=== PATIENT | male | born 1965 ===

== ENCOUNTER 2017-09-14 11:19 | Observation (INO) ==
[2017-09-14] MEDS ORDERED: ASPIRIN 325 MG TABLET PO STA (11:43)
[2017-09-14] MEDS ORDERED: NITROGLYCERIN SL 0.4 MG TABLET SL PRN ×2 (11:43→14:00)
[2017-09-14] MEDS ORDERED: ASPIRIN 325 MG TABLET ONE (11:50)
[2017-09-14] MEDS ORDERED: NITROGLYCERIN SL 0.4 MG TABLET SL ONE (11:50)
[2017-09-14 11:51] LABS: Basophils % 0.4 % (0.0-0.8); Eosinophils # 0.5 10*3/uL (0.0-0.87); Eosinophils % 5.6 % (0.00-10.9); Hematocrit 45.4 VOL% (42.0-52.0); Hemoglobin 15.3 GM/DL (14.0-18.0); Immature Granulocytes % 0.7 %; Immature Granulocytes Absolute 0.06 #; Lymphocytes # 1.2 10*3/uL (1.4-4.0); Lymphocytes % 13.2 % (21.2-54.2); Mean Corpuscular HGB Conc 33.7 GM/DL (32-36); Mean Corpuscular Hemoglobin 29 PG (27-34); Mean Corpuscular Volume 86.5 FL (87-102); Mean Platelet Volume 9.4 FL (9.6-12.0); Monocytes # 0.7 10*3/uL (0.11-0.8); Monocytes % 8.1 % (1.7-12.7); Neutrophils # 6.5 10*3/uL (1.4-7.4); Platelet Count 263 T/CUMM (130-400); Red Blood Count 5.25 MC/CUMM (3.8-5.5); Red Cell Distribution Width 12.6 % (9.3-17.3)
[2017-09-14 12:16] LABS: Albumin 3.5 G/DL (3.4-5.0); Bilirubin,Total 0.6 MG/DL (0.2-1.0); Calcium 8.9 MG/DL (8.5-10.1); Osmolality,Calculated 286.8 MOS/KG (273-304); Potassium 4.1 MMOL/L (3.5-5.1); Total Protein 6.7 G/DL (6.4-8.3)
[2017-09-14] MEDS ORDERED: ENOXAPARIN 120 MG/0.8 ML SYRINGE SUBCUT STA (13:56)
[2017-09-14] MEDS ORDERED: MAGNESIUM SULF RIDER 2 GM in PREMIX 1 EACH IV PRN (13:57)
[2017-09-14] MEDS ORDERED: ACETAMINOPHEN 325 MG TABLET PO PRN (13:57)
[2017-09-14] MEDS ORDERED: POTASSIUM CHLORIDE 20 MEQ/15 ML UDCUP PER TUBE PRN (13:57)
[2017-09-14] MEDS ORDERED: ONDANSETRON 4 MG/2 ML VIAL IV PRN (13:57)
[2017-09-14] MEDS ORDERED: ZALEPLON 5 MG CAPSULE PO PRN (13:57)
[2017-09-14] MEDS ORDERED: MAGNESIUM SULF RIDER 4 GM in PREMIX 1 EACH IV PRN (13:57)
[2017-09-14] MEDS ORDERED: MORPHINE 2 MG/1 ML SYRINGE IV PRN (13:57)
[2017-09-14 14:11] LABS: Apearance,Urine CLEAR (Clear); Bilirubin,Urine Negative (Negative); Blood, Urine Negative (Negative); Glucose,Urine (UA) Negative (Negative); Ketones,Urine Negative (Negative); Mucus,Urine Occasional /LPF (Occasional); Nitrite,Urine Negative (Negative); Protein,Urine Negative; RBC,Urine <1 /HPF (0-4); Squamous Epithelial Cell,Urine Occasional /HPF (0-10); Urine Color Yellow (Yellow); Urine Specific Gravity 1.015 (1.001-1.035); WBC,Urine <1 /HPF (0-6)
[2017-09-14] MEDS ORDERED: HEPARIN/NACL 0.9% 2 UNITS/ML 2,000 ML IV ONE (14:14)
[2017-09-14] MEDS ORDERED: ENOXAPARIN 120 MG/0.8 ML SYRINGE SUBCUT ONE (14:22)
[2017-09-14] MEDS ORDERED: diphenhydrAMINE CAP 25 MG CAPSULE PO ONE (14:23)
[2017-09-14] MEDS ORDERED: ENOXAPARIN 100 MG/ML SYRINGE SUBCUT SCH (14:30)
[2017-09-14] MEDS ORDERED: LIDOCAINE 1% 20 ML VIAL ONE (14:35)
[2017-09-14] MEDS ORDERED: HYDROmorphone 2 MG/1 ML VIAL ONE (14:45)
[2017-09-14] MEDS ORDERED: MIDAZOLAM 2 MG/2 ML VIAL ONE (14:46)
[2017-09-14] MEDS ORDERED: guaiFENesin/DM ER 600-30 MG TABLET PO PRN (14:48)
[2017-09-14] MEDS ORDERED: DOCUSATE SODIUM 100 MG CAPSULE PO PRN (14:48)
[2017-09-14] MEDS ORDERED: LACTULOSE 20 GM/30 ML UDCUP PO PRN (14:48)
[2017-09-14] MEDS ORDERED: diphenhydrAMINE CAP 25 MG CAPSULE PO PRN (14:48)
[2017-09-14] MEDS: SODIUM CHLORIDE 0.45% 1,000 ML IV SCH (16:57)
[2017-09-14 18:09] LABS: Troponin I Only < 0.015 NG/ML (0.00-0.045)
[2017-09-14] MEDS ORDERED: predniSONE 20 MG TABLET PO SCH (19:30)
[2017-09-14 20:14] LABS: Troponin I Only < 0.015 NG/ML (0.00-0.045)
[2017-09-14] MEDS: COLCHICINE 0.6 MG TABLET PO SCH (20:39)
[2017-09-14] MEDS: RANOLAZINE 500 MG TABLET PO SCH (20:40)
[2017-09-14] MEDS ORDERED: ATORVASTATIN 80 MG TABLET PO SCH (21:00)
[2017-09-15] MEDS: SODIUM CHLORIDE 0.45% 1,000 ML IV SCH ×2 (02:06→05:40)
[2017-09-15 05:12] LABS: Basophils % 0.4 % (0.0-0.8); Eosinophils % 0.3 % (0.00-10.9); Hematocrit 44.8 VOL% (42.0-52.0); Hemoglobin 15.1 GM/DL (14.0-18.0); Immature Granulocytes % 0.5 %; Immature Granulocytes Absolute 0.04 #; Lymphocytes # 0.5 10*3/uL (1.4-4.0); Mean Corpuscular HGB Conc 33.7 GM/DL (32-36); Mean Corpuscular Hemoglobin 29 PG (27-34); Mean Corpuscular Volume 85.2 FL (87-102); Mean Platelet Volume 9.4 FL (9.6-12.0); Monocytes # 0.2 10*3/uL (0.11-0.8); Monocytes % 2.1 % (1.7-12.7); Neutrophils # 6.7 10*3/uL (1.4-7.4); Neutrophils % 89.7 % (38.7-73.9); Platelet Count 244 T/CUMM (130-400); Red Blood Count 5.26 MC/CUMM (3.8-5.5); Red Cell Distribution Width 12.6 % (9.3-17.3); White Blood Count 7.5 T/CUMM (4-12)
[2017-09-15 05:31] LABS: Risk Ratio 3.2; VLDL CHOLESTEROL 18.4 MG/DL
[2017-09-15 05:32] LABS: Blood Urea Nitrogen 13 MG/DL (7-18); Calcium 8.5 MG/DL (8.5-10.1); Glucose 177 MG/DL (74-106); Osmolality,Calculated 278.7 MOS/KG (273-304); Potassium 4.7 MMOL/L (3.5-5.1); Sodium 138 MMOL/L (136-145); Troponin I Only < 0.015 NG/ML (0.00-0.045)
[2017-09-15 07:51] VITALS: BP 167/76
[2017-09-15] MEDS: RANOLAZINE 500 MG TABLET PO SCH (08:25)
[2017-09-15] MEDS: COLCHICINE 0.6 MG TABLET PO SCH (08:25)
[2017-09-15] MEDS ORDERED: ALLOPURINOL 300 MG TABLET PO SCH ×2 (09:00)
[2017-09-15] MEDS ORDERED: PANTOPRAZOLE 40 MG TABLET PO SCH (09:00)
[2017-09-15] MEDS ORDERED: NON-FORMULARY MEDICATION (Omeprazole [Prilosec] 20 MG) PO SCH (09:00)
[2017-09-15] MEDS ORDERED: ASPIRIN EC 81 MG TABLET PO SCH (09:00)
[2017-09-15] MEDS ORDERED: FEXOFENADINE 180 MG TABLET PO SCH (09:00)
[2017-09-15] MEDS ORDERED: METOPROLOL SUCCINATE XL 25 MG TABLET PO SCH (09:00)
[2017-09-15] MEDS ORDERED: CLOPIDOGREL 75 MG TABLET PO SCH (09:00)
== END 2017-09-15 10:48 | disposition home or self-care (01) ==
LOC: N.ED 11:19 → N.EDINP 11:19 → N.TELEN 16:07
PROVIDERS: ADMIT Internal Medicine Cardiovascular Disease; ATTEND Internal Medicine Cardiovascular Disease
PROC: CLCCHCL (ICD-10-PCS; 2017-09-14 15:15)

== ENCOUNTER 2018-09-25 19:45 | Observation (INO) ==
[2018-09-25] MEDS: SODIUM CHLORIDE 0.9% 1,000 ML IV SCH (22:20)
[2018-09-26] MEDS ORDERED: ACETAMINOPHEN 325 MG TABLET PO PRN (00:17)
[2018-09-26] MEDS ORDERED: DOCUSATE SODIUM 100 MG CAPSULE PO PRN (00:17)
[2018-09-26] MEDS ORDERED: ONDANSETRON 4 MG/2 ML VIAL IV PRN (00:17)
[2018-09-26] MEDS: HYDROmorphone 2 MG/1 ML VIAL IV PRN ×2 (03:25→18:45)
[2018-09-26 05:53] LABS: Basophils % 0.2 % (0.0-0.8); Hematocrit 43.1 VOL% (42.0-52.0); Hemoglobin 14.2 GM/DL (14.0-18.0); Immature Granulocytes % 0.7 %; Immature Granulocytes Absolute 0.08 #; Lymphocytes # 0.7 10*3/uL (1.4-4.0); Lymphocytes % 6.3 % (21.2-54.2); Mean Corpuscular HGB Conc 32.9 GM/DL (32-36); Mean Corpuscular Hemoglobin 28 PG (27-34); Mean Platelet Volume 9.6 FL (9.6-12.0); Monocytes # 0.7 10*3/uL (0.11-0.8); Neutrophils # 9.5 10*3/uL (1.4-7.4); Neutrophils % 86.8 % (38.7-73.9); Platelet Count 250 T/CUMM (130-400); Red Blood Count 5.01 MC/CUMM (3.8-5.5); Red Cell Distribution Width 13.2 % (9.3-17.3); White Blood Count 10.9 T/CUMM (4-12)
[2018-09-26 06:13] LABS: Potassium 4.1 MMOL/L (3.5-5.1)
[2018-09-26] MEDS: SODIUM CHLORIDE 0.9% 1,000 ML IV SCH ×3 (10:00→23:48)
[2018-09-26] MEDS: TAMSULOSIN 0.4 MG CAPSULE PO SCH ×2 (11:53→21:02)
[2018-09-27 05:12] LABS: Basophils # 0.1 10*3/uL (0.0-0.2); Basophils % 0.8 % (0.0-0.8); Eosinophils # 0.4 10*3/uL (0.0-0.87); Eosinophils % 3.8 % (0.00-10.9); Hemoglobin 13.5 GM/DL (14.0-18.0); Immature Granulocytes % 0.5 %; Immature Granulocytes Absolute 0.05 #; Lymphocytes # 1.4 10*3/uL (1.4-4.0); Lymphocytes % 15.2 % (21.2-54.2); Mean Corpuscular HGB Conc 32.1 GM/DL (32-36); Mean Corpuscular Hemoglobin 28 PG (27-34); Mean Corpuscular Volume 87.5 FL (87-102); Mean Platelet Volume 10.4 FL (9.6-12.0); Monocytes % 10.4 % (1.7-12.7); Neutrophils # 6.3 10*3/uL (1.4-7.4); Neutrophils % 69.3 % (38.7-73.9); Platelet Count 203 T/CUMM (130-400); Red Cell Distribution Width 13.2 % (9.3-17.3); White Blood Count 9.1 T/CUMM (4-12)
[2018-09-27 05:41] LABS: Calcium 7.7 MG/DL (8.5-10.1); Potassium 3.9 MMOL/L (3.5-5.1)
[2018-09-27] MEDS: TAMSULOSIN 0.4 MG CAPSULE PO SCH (09:05)
[2018-09-27] MEDS: SODIUM CHLORIDE 0.9% 1,000 ML IV SCH (09:08)
[2018-09-27 11:58] VITALS: BP 138/79
== END 2018-09-27 13:30 | disposition home or self-care (01) ==
LOC: N.5E → SUATTDRO 22:08
PROVIDERS: ADMIT Internal Medicine; ATTEND Internal Medicine

== ENCOUNTER 2019-05-01 12:49 | Observation (INO) ==
[2019-05-01] MEDS ORDERED: NITROGLYCERIN SL 0.4 MG TABLET SL PRN (17:39)
[2019-05-01] MEDS ORDERED: ZALEPLON 5 MG CAPSULE PO PRN (17:59)
[2019-05-01] MEDS ORDERED: guaiFENesin/DM ER 600-30 MG TABLET PO PRN (17:59)
[2019-05-01] MEDS ORDERED: ACETAMINOPHEN 325 MG TABLET PO PRN (17:59)
[2019-05-01] MEDS ORDERED: ATORVASTATIN 40 MG TABLET PO SCH (21:00)
[2019-05-01] MEDS: TAMSULOSIN 0.4 MG CAPSULE PO SCH (21:20)
[2019-05-02 05:06] LABS: Basophils % 0.6 % (0.0-0.8); Eosinophils # 0.6 10*3/uL (0.0-0.87); Eosinophils % 8.5 % (0.00-10.9); Hemoglobin 15.2 GM/DL (14.0-18.0); Immature Granulocytes % 0.7 %; Immature Granulocytes Absolute 0.05 #; Lymphocytes # 1.5 10*3/uL (1.4-4.0); Lymphocytes % 21.6 % (21.2-54.2); Mean Corpuscular HGB Conc 33.8 GM/DL (32-36); Mean Corpuscular Volume 85.1 FL (87-102); Mean Platelet Volume 10.2 FL (9.6-12.0); Monocytes % 8.3 % (1.7-12.7); Neutrophils % 60.3 % (38.7-73.9); Platelet Count 279 T/CUMM (130-400); Red Blood Count 5.29 MC/CUMM (3.8-5.5); Red Cell Distribution Width 12.7 % (9.3-17.3); White Blood Count 7.1 T/CUMM (4-12)
[2019-05-02 05:40] LABS: Albumin 3.4 G/DL (3.4-5.0); Bilirubin,Total 1.6 MG/DL (0.2-1.0); Calcium 8.4 MG/DL (8.5-10.1); Osmolality,Calculated 283.3 MOS/KG (273-304); Risk Ratio 5.89; Thyroid Stimulating Hormone 6.86 uIU/ml (0.358-3.74); Total Protein 7.1 G/DL (6.4-8.3); VLDL CHOLESTEROL 51.8 MG/DL
[2019-05-02] MEDS ORDERED: COLCHICINE 0.6 MG CAPSULE PO SCH (09:00)
[2019-05-02] MEDS ORDERED: CLOPIDOGREL 75 MG TABLET PO SCH (09:00)
[2019-05-02] MEDS: TAMSULOSIN 0.4 MG CAPSULE PO SCH (10:20)
[2019-05-02] MEDS ORDERED: DEXTROSE 50% 25 GM/50 ML VIAL IV PRN (10:24)
[2019-05-02] MEDS ORDERED: GLUCAGON 1 MG VIAL IM PRN (10:24)
[2019-05-02 10:33] LABS: Basophils # 0.1 10*3/uL (0.0-0.2); Basophils % 0.7 % (0.0-0.8); Eosinophils # 0.6 10*3/uL (0.0-0.87); Hematocrit 46.3 VOL% (42.0-52.0); Hemoglobin 15.9 GM/DL (14.0-18.0); Immature Granulocytes % 0.7 %; Immature Granulocytes Absolute 0.05 #; Lymphocytes # 1.2 10*3/uL (1.4-4.0); Lymphocytes % 16.9 % (21.2-54.2); Mean Corpuscular HGB Conc 34.3 GM/DL (32-36); Mean Corpuscular Volume 84.3 FL (87-102); Mean Platelet Volume 9.5 FL (9.6-12.0); Monocytes % 7.6 % (1.7-12.7); Neutrophils % 66.1 % (38.7-73.9); Platelet Count 276 T/CUMM (130-400); Red Blood Count 5.49 MC/CUMM (3.8-5.5); Red Cell Distribution Width 12.6 % (9.3-17.3); White Blood Count 7.3 T/CUMM (4-12)
[2019-05-02] MEDS ORDERED: INSULIN REGULAR 100 UNIT/ML SUBCUT SCH (11:30)
[2019-05-02] MEDS ORDERED: metFORMIN 500 MG TABLET PO SCH (12:37)
[2019-05-02 12:44] VITALS: BP 161/79
[2019-05-02] MEDS ORDERED: OMEGA 3 ACID ETHYL ESTERS 1 GM CAPSULE PO SCH (21:00)
== END 2019-05-02 14:55 | disposition home or self-care (01) ==
LOC: N.2W → SUATTDRO 15:20 → N.2W 16:08
PROVIDERS: ADMIT Internal Medicine; ATTEND Internal Medicine

== ENCOUNTER 2020-05-04 06:00 | Inpatient (IN) ==
[~2020-05-04 06:00] MED LIST: ASPIRIN 325 MG TABLET PO ONE; DEXTROSE 5% NACL 0.45% 1,000 ML IV SCH; DIAZEPAM 5 MG TABLET PO ONE; MAGNESIUM SULF RIDER 2 GM in PREMIX 1 EACH IV PRN; POTASSIUM CHLORIDE RIDER 10 MEQ in PREMIX 1 EACH IV PRN; diphenhydrAMINE CAP 25 MG CAPSULE PO ONE
[2020-05-04] MEDS ORDERED: LIDOCAINE 1%/EPI INJ 20 ML VIAL ONE (06:42)
[2020-05-04] MEDS ORDERED: HEPARIN/NACL 0.9% 2 UNITS/ML 1,000 ML IV ONE (06:42)
[2020-05-04] MEDS ORDERED: VERAPAMIL 5 MG/2 ML VIAL ONE (06:53)
[2020-05-04] MEDS ORDERED: NITROGLYCERIN DRIP 50 MG/250 ML BOTTLE IV ONE (06:53)
[2020-05-04] MEDS ORDERED: LIDOCAINE 1% 20 ML VIAL ONE (06:55)
[2020-05-04] MEDS ORDERED: diphenhydrAMINE CAP 25 MG CAPSULE ONE (06:55)
[2020-05-04] MEDS ORDERED: DIAZEPAM 5 MG TABLET ONE (06:55)
[2020-05-04] MEDS ORDERED: ASPIRIN 325 MG TABLET ONE (06:55)
[2020-05-04] MEDS ORDERED: MIDAZOLAM 2 MG/2 ML VIAL ONE ×2 (07:12→07:32)
[2020-05-04] MEDS ORDERED: fentaNYL 100 MCG/2 ML VIAL ONE (07:12)
[2020-05-04 07:41] LABS: PT Patient Result 10.9 SECS (9.8-11.9)
[2020-05-04] MEDS ORDERED: ENOXAPARIN 60 MG/0.6 ML SYRINGE ONE (07:46)
[2020-05-04] MEDS ORDERED: COLCHICINE 0.6 MG CAPSULE PO PRN (08:05)
[2020-05-04] MEDS ORDERED: NITROGLYCERIN SL 0.4 MG TABLET SL PRN (08:05)
[2020-05-04] MEDS ORDERED: fentaNYL 100 MCG/2 ML VIAL IV PRN (08:06)
[2020-05-04] MEDS: METOPROLOL TARTRATE 50 MG TABLET PO SCH ×2 (09:39→21:04)
[2020-05-04] MEDS: PANTOPRAZOLE 40 MG TABLET PO SCH (09:39)
[2020-05-04] MEDS: ATORVASTATIN 40 MG TABLET PO SCH (09:39)
[2020-05-04] MEDS: amLODIPine 5 MG TABLET PO SCH (09:39)
[2020-05-04] MEDS ORDERED: DEXTROSE 50% 25 GM/50 ML VIAL IV PRN (13:47)
[2020-05-04] MEDS ORDERED: GLUCAGON 1 MG VIAL IM PRN (13:47)
[2020-05-04] MEDS ORDERED: PNEUMOCOCCAL VACCINE (13 VALENT) 0.5 ML SYRINGE IM ONE (14:20)
[2020-05-04] MEDS ORDERED: INFLUENZA VIRUS VACCINE 0.5 ML SYRINGE IM ONE (14:20)
[2020-05-04] MEDS: ASPIRIN EC 81 MG TABLET PO SCH (14:24)
[2020-05-04] MEDS: CHLORHEXIDINE 4% SOLN 118 ML BOTTLE TOP SCH (21:30)
[2020-05-05 05:17] LABS: Basophils # 0.1 10*3/uL (0.0-0.2); Basophils % 0.7 % (0.0-0.8); Eosinophils # 0.5 10*3/uL (0.0-0.87); Eosinophils % 7.2 % (0.00-10.9); Hematocrit 43.5 VOL% (42.0-52.0); Hemoglobin 14.8 GM/DL (14.0-18.0); Immature Granulocytes % 0.6 %; Immature Granulocytes Absolute 0.04 #; Lymphocytes # 1.6 10*3/uL (1.4-4.0); Lymphocytes % 23.3 % (21.2-54.2); Mean Corpuscular Volume 84.8 FL (87-102); Mean Platelet Volume 9.6 FL (9.6-12.0); Monocytes % 7.9 % (1.7-12.7); Neutrophils % 60.3 % (38.7-73.9); Platelet Count 250 T/CUMM (130-400); Red Blood Count 5.13 MC/CUMM (3.8-5.5); Red Cell Distribution Width 12.4 % (9.3-17.3); White Blood Count 6.8 T/CUMM (4-12)
[2020-05-05 05:43] LABS: Albumin 2.8 G/DL (3.4-5.0); Bilirubin,Total 0.5 MG/DL (0.2-1.0); Calcium 8.6 MG/DL (8.5-10.1); Osmolality,Calculated 283.4 MOS/KG (273-304); Total Protein 6.7 G/DL (6.4-8.3)
[2020-05-05] MEDS ORDERED: CHLORHEXIDINE 4% SOLN 118 ML BOTTLE TOP SCH (09:00)
[2020-05-05 09:53] LABS: ABG Base Excess -1.1 MMOL/L (-2.5-2.5); ABG HCO3 23.5 MMOL/L (20-26); ABG Oxygen Saturation 98.7 % (95-100); ABG PCO2 40.1 MM HG (35-48); ABG PH 7.382 (7.35-7.45); ABG TCO2 19.8 MMOL/L (23-27)
[2020-05-05] MEDS: amLODIPine 5 MG TABLET PO SCH (10:06)
[2020-05-05] MEDS: PANTOPRAZOLE 40 MG TABLET PO SCH (10:06)
[2020-05-05] MEDS: ATORVASTATIN 40 MG TABLET PO SCH (10:07)
[2020-05-05] MEDS: METOPROLOL TARTRATE 50 MG TABLET PO SCH ×2 (10:07→20:23)
[2020-05-05] MEDS: CHLORHEXIDINE 0.12% ORAL RINSE 60 ML BOTTLE SWISH/SPIT SCH ×2 (10:07→20:23)
[2020-05-05] MEDS: ASPIRIN EC 81 MG TABLET PO SCH (10:07)
[2020-05-05] MEDS ORDERED: DIAZEPAM 5 MG TABLET PO ONE (10:36)
[2020-05-05] MEDS ORDERED: PANTOPRAZOLE 40 MG TABLET PO ONE (10:36)
[2020-05-05] MEDS: CLORAZEPATE 3.75 MG TABLET PO PRN ×2 (11:59→20:23)
[2020-05-05] MEDS ORDERED: POTASSIUM CHLORIDE 20 MEQ TABLET PO ONE (13:53)
[2020-05-05] MEDS ORDERED: SODIUM CHLORIDE 0.9% 1,000 ML IV SCH (14:00)
[2020-05-05] MEDS: allopurinoL 100 MG TABLET PO SCH (14:23)
[2020-05-05] MEDS: CHLORHEXIDINE 4% SOLN 118 ML BOTTLE TOP SCH (14:37)
[2020-05-05] MEDS: ASCORBIC ACID 500 MG TABLET PO SCH (20:23)
[2020-05-06] MEDS ORDERED: PAPAVERINE 60 MG/2 ML VIAL ONE (04:21)
[2020-05-06] MEDS ORDERED: VANCOMYCIN 1,000 MG VIAL ONE (04:21)
[2020-05-06] MEDS ORDERED: VANCOMYCIN 500 MG VIAL ONE (04:22)
[2020-05-06] MEDS: CHLORHEXIDINE 4% SOLN 118 ML BOTTLE TOP SCH (04:50)
[2020-05-06] MEDS ORDERED: CEFUROXIME INJ 1,500 MG in SYRINGE 1 EACH IV ONE (05:00)
[2020-05-06] MEDS ORDERED: LIDOCAINE 2% 5 ML VIAL ONE (05:43)
[2020-05-06] MEDS ORDERED: SUFentanil 250 MCG/5 ML AMP ONE ×2 (05:43→07:47)
[2020-05-06] MEDS ORDERED: CALCIUM CHLORIDE 1,000 MG/10 ML VIAL IV ONE (05:43)
[2020-05-06] MEDS ORDERED: HEPARIN/NACL 0.9% 2 UNITS/ML 500 ML IV ONE (05:43)
[2020-05-06] MEDS ORDERED: ETOMIDATE 40 MG/20 ML VIAL IV ONE (05:44)
[2020-05-06] MEDS ORDERED: ePHEDrine 50 MG/ML VIAL ONE (05:44)
[2020-05-06] MEDS ORDERED: MIDAZOLAM 10 MG/2 ML VIAL ONE ×2 (05:44)
[2020-05-06] MEDS ORDERED: PHENYLEPHRINE 10 MG/1 ML VIAL IV ONE (05:44)
[2020-05-06] MEDS ORDERED: VECURONIUM 10 MG VIAL IV ONE (05:44)
[2020-05-06] MEDS ORDERED: MINERAL OIL/PETROLATUM OPH OINT 3.5 GM TUBE ONE (05:44)
[2020-05-06] MEDS ORDERED: SODIUM CHLORIDE 0.9% 250 ML IV ONE (05:45)
[2020-05-06] MEDS ORDERED: SODIUM CHLORIDE 0.9% 1,000 ML IV ONE (05:45)
[2020-05-06] MEDS ORDERED: LACTATED RINGERS 1,000 ML IV ONE (05:45)
[2020-05-06] MEDS ORDERED: NITROGLYCERIN DRIP 50 MG/250 ML BOTTLE IV ONE (05:45)
[2020-05-06] MEDS ORDERED: AMINOCAPROIC ACID 5,000 MG/20 ML VIAL ONE (05:45)
[2020-05-06] MEDS ORDERED: DIAZEPAM 5 MG TABLET PO ONE (06:00)
[2020-05-06] MEDS ORDERED: diphenhydrAMINE CAP 25 MG CAPSULE PO ONE (06:00)
[2020-05-06] MEDS ORDERED: PANTOPRAZOLE 40 MG TABLET PO ONE (06:00)
[2020-05-06] MEDS ORDERED: SODIUM CHLORIDE 0.9% 1,000 ML IV SCH (06:00)
[2020-05-06 07:37] LABS: ABG Base Excess 0.8 MMOL/L (-2.5-2.5); ABG HCO3 25.2 MMOL/L (20-26); ABG PCO2 40.9 MM HG (35-48); ABG PH 7.405 (7.35-7.45); ABG TCO2 21.6 MMOL/L (23-27); Glucose Heart Surgery 172 MG/DL (74-106); Hematocrit Heart Surgery 46.7 PERCENT (42-52); Hemoglobin Heart Surgery 15.3 G/DL (14.0-18.0); Ionized Calcium Arterial 1.17 MMOL/L (1.21-1.46); PCO2 Patient Temp Arterial 40.9 MMHG; PH Patient Temp Arterial 7.405; Patient Temperature 37 CELCIUS; Potassium Heart/CVR 3.9 MMOL/L (3.5-5.1); Sodium Heart/CVR 141 MMOL/L (135-145)
[2020-05-06 07:43] LABS: Bacteria,Urine Occasional /HPF (Few); Bilirubin,Urine Negative (Negative); Blood, Urine Negative (Negative); Glucose,Urine (UA) Negative (Negative); Ketones,Urine Negative (Negative); Mucus,Urine Occasional /LPF (Occasional); Nitrite,Urine Negative (Negative); Protein,Urine Negative; RBC,Urine <1 /HPF (0-4); Urine Appearance CLEAR (Clear); Urine Color Yellow (Yellow); Urine Specific Gravity 1.015 (1.001-1.035); Urine Urobilinogen < 2.0 EU/DL (0.2-1.0); WBC,Urine 1 /HPF (0-6)
[2020-05-06] MEDS ORDERED: INSULIN REGULAR 100 UNIT/ML ONE (08:01)
[2020-05-06] MEDS: METOPROLOL TARTRATE 50 MG TABLET PO SCH (08:06)
[2020-05-06] MEDS: amLODIPine 5 MG TABLET PO SCH (08:06)
[2020-05-06] MEDS: ATORVASTATIN 40 MG TABLET PO SCH (08:06)
[2020-05-06] MEDS: ASPIRIN EC 81 MG TABLET PO SCH (08:06)
[2020-05-06] MEDS: PANTOPRAZOLE 40 MG TABLET PO SCH (08:06)
[2020-05-06] MEDS: allopurinoL 100 MG TABLET PO SCH (08:06)
[2020-05-06] MEDS: ASCORBIC ACID 500 MG TABLET PO SCH (08:06)
[2020-05-06] MEDS: CHLORHEXIDINE 0.12% ORAL RINSE 60 ML BOTTLE SWISH/SPIT SCH ×2 (08:06→20:16)
[2020-05-06] MEDS ORDERED: PHENYLEPHRINE DRIP 40 MG/250 ML PREMIX IV ONE (08:34)
[2020-05-06] MEDS ORDERED: ALBUMIN 5% 12.5 GM/250 ML VIAL IV ONE ×2 (08:34→10:09)
[2020-05-06 09:09] LABS: Hematocrit Heart Surgery 35.7 PERCENT (42-52); Hemoglobin Heart Surgery 11.6 G/DL (14.0-18.0); PCO2 Patient Temp Venous 36.1 MM HG; PH Patient Temp Venous 7.453; PO2 Patient Temp Venous 36.5 MM HG; Potassium Heart/CVR 3.6 MMOL/L (3.5-5.1); VBG Base Excess 1.6 MEQ/L (0-4); VBG HCO3 25.5 MEQ/L (24-28); VBG Oxygen Saturation 82.7 %; VBG PCO2 41.8 MMHG (41-51); VBG PH 7.409
[2020-05-06 09:39] LABS: Hemoglobin Heart Surgery 11.7 G/DL (14.0-18.0); PCO2 Patient Temp Venous 41.1 MM HG; PH Patient Temp Venous 7.403; PO2 Patient Temp Venous 38.4 MM HG; Potassium Heart/CVR 4.4 MMOL/L (3.5-5.1); VBG Base Excess 0.8 MEQ/L (0-4); VBG HCO3 24.8 MEQ/L (24-28); VBG Oxygen Saturation 77.9 %; VBG PCO2 43.2 MMHG (41-51); VBG PH 7.388; VBG PO2 41.1 MMHG (17-40)
[2020-05-06 10:08] LABS: ABG Base Excess -0.2 MMOL/L (-2.5-2.5); ABG HCO3 24.3 MMOL/L (20-26); ABG PCO2 40.3 MM HG (35-48); ABG PH 7.393 (7.35-7.45); ABG TCO2 21.7 MMOL/L (23-27); Glucose Heart Surgery 215 MG/DL (74-106); Hematocrit Heart Surgery 37.6 PERCENT (42-52); Hemoglobin Heart Surgery 12.2 G/DL (14.0-18.0); Ionized Calcium Arterial 1.23 MMOL/L (1.21-1.46); PCO2 Patient Temp Arterial 40.3 MMHG; PH Patient Temp Arterial 7.393; Patient Temperature 37 CELCIUS; Potassium Heart/CVR 3.6 MMOL/L (3.5-5.1); Sodium Heart/CVR 136 MMOL/L (135-145)
[2020-05-06] MEDS ORDERED: DEXTROSE 5% KCL 20 MEQ 20 MEQ/1,000 ML BAG IV ONE (10:08)
[2020-05-06] MEDS ORDERED: PROTAMINE SULFATE 250 MG/25 ML VIAL IV ONE (10:08)
[2020-05-06] MEDS ORDERED: ALBUMIN 25% 25 GM/100 ML VIAL IV ONE (10:08)
[2020-05-06] MEDS ORDERED: MAGNESIUM SULFATE 5 GM/10 ML VIAL IV ONE (10:08)
[2020-05-06] MEDS ORDERED: SODIUM BICARBONATE 50 MEQ/50 ML VIAL IV ONE (10:08)
[2020-05-06] MEDS ORDERED: MANNITOL 100 GM/500 ML BAG IV ONE (10:08)
[2020-05-06] MEDS ORDERED: HEPARIN 10,000 UNIT/10 ML VIAL ONE (10:08)
[2020-05-06] MEDS ORDERED: methylPREDNISolone SOD SUC 1,000 MG/8 ML VIAL ONE (10:09)
[2020-05-06] MEDS ORDERED: POTASSIUM CHLORIDE 20 MEQ/10 ML VIAL ONE (10:09)
[2020-05-06] MEDS ORDERED: FUROSEMIDE 20 MG/2 ML VIAL ONE (10:09)
[2020-05-06] MEDS: NITROPRUSSIDE 100 MG in DEXTROSE 5% 250 ML IV PRN (10:50)
[2020-05-06] MEDS ORDERED: INSULIN REGULAR 100 UNIT/ML IV ONE (10:55)
[2020-05-06] MEDS ORDERED: MAGNESIUM SULF RIDER 2 GM in PREMIX 1 EACH IV PRN (10:55)
[2020-05-06] MEDS ORDERED: CHLORHEXIDINE 4% SOLN 118 ML BOTTLE TOP PRN (10:55)
[2020-05-06] MEDS ORDERED: VECURONIUM 10 MG VIAL IV PRN ×2 (10:55)
[2020-05-06] MEDS ORDERED: PHENYLEPHRINE DRIP 40 MG/250 ML PREMIX IV PRN (10:55)
[2020-05-06] MEDS ORDERED: MIDAZOLAM 10 MG/2 ML VIAL IV PRN (10:55)
[2020-05-06] MEDS ORDERED: INSULIN REGULAR 100 UNIT/ML IV PRN (10:55)
[2020-05-06] MEDS ORDERED: CALCIUM CHLORIDE 1,000 MG/10 ML SYRINGE IV PRN (10:55)
[2020-05-06] MEDS ORDERED: MAGNESIUM SULF RIDER 4 GM in PREMIX 1 EACH IV PRN (10:55)
[2020-05-06] MEDS ORDERED: ACETAMINOPHEN 650 MG SUPP RECTAL PRN (10:55)
[2020-05-06] MEDS ORDERED: DEXTROSE 50% 25 GM/50 ML VIAL IV PRN ×2 (10:55)
[2020-05-06] MEDS ORDERED: MORPHINE 10 MG/1 ML VIAL IV PRN (10:55)
[2020-05-06] MEDS ORDERED: LACTATED RINGERS 250 ML IV PRN (10:55)
[2020-05-06] MEDS ORDERED: SEVOFLURANE 1 UNIT/15 MINUTE INH ONE (10:57)
[2020-05-06] MEDS ORDERED: SODIUM CHLORIDE 0.45% 1,000 ML IV SCH ×2 (11:00)
[2020-05-06 11:38] LABS: ABG Base Excess 0.8 MMOL/L (-2.5-2.5); ABG HCO3 25.1 MMOL/L (20-26); ABG Oxygen Saturation 98.2 % (95-100); ABG PCO2 36.4 MM HG (35-48); ABG PH 7.438 (7.35-7.45); ABG PO2 93.5 MM HG (80-95); Glucose Heart Surgery 223 MG/DL (74-106); Hematocrit Heart Surgery 44.3 PERCENT (42-52); Hemoglobin Heart Surgery 14.5 G/DL (14.0-18.0); Potassium Heart/CVR 4.5 MMOL/L (3.5-5.1)
[2020-05-06 11:48] LABS: Basophils # 0.1 10*3/uL (0.0-0.2); Basophils % 0.3 % (0.0-0.8); Eosinophils # 0.2 10*3/uL (0.0-0.87); Eosinophils % 1.3 % (0.00-10.9); Hemoglobin 14.4 GM/DL (14.0-18.0); Immature Granulocytes % 1.2 %; Immature Granulocytes Absolute 0.22 #; Lymphocytes # 1.3 10*3/uL (1.4-4.0); Lymphocytes % 7.2 % (21.2-54.2); Mean Corpuscular HGB Conc 35.1 GM/DL (32-36); Mean Corpuscular Volume 82.7 FL (87-102); Mean Platelet Volume 9.3 FL (9.6-12.0); Monocytes % 3.2 % (1.7-12.7); Neutrophils % 86.8 % (38.7-73.9); Platelet Count 229 T/CUMM (130-400); Red Blood Count 4.96 MC/CUMM (3.8-5.5); Red Cell Distribution Width 12.4 % (9.3-17.3); White Blood Count 17.9 T/CUMM (4-12)
[2020-05-06 12:03] LABS: INR 1.2; PT Patient Result 12.3 SECS (9.8-11.9); Partial Thromboplastin Time 33.2 SECS (23.9-33.8)
[2020-05-06 12:05] LABS: CKMB % 5.8 %
[2020-05-06 12:06] LABS: Troponin I 3.31 NG/ML (0.00-0.045)
[2020-05-06 12:11] LABS: Albumin 3.6 G/DL (3.4-5.0); Bilirubin,Total 1.5 MG/DL (0.2-1.0); Calcium 8.6 MG/DL (8.5-10.1); Osmolality,Calculated 282.5 MOS/KG (273-304); Total Protein 6.5 G/DL (6.4-8.3)
[2020-05-06] MEDS: LACTATED RINGERS 1,000 ML IV PRN ×2 (12:15→15:53)
[2020-05-06] MEDS: ALBUMIN 5% 12.5 GM in PREMIX 1 EACH IV PRN ×2 (12:27→15:24)
[2020-05-06 12:53] LABS: ABG Base Excess -1.4 MMOL/L (-2.5-2.5); ABG HCO3 23.2 MMOL/L (20-26); ABG Oxygen Saturation 97.7 % (95-100); ABG PCO2 37.4 MM HG (35-48); ABG PH 7.397 (7.35-7.45); ABG PO2 90.5 MM HG (80-95); ABG TCO2 19.7 MMOL/L (23-27); Glucose Heart Surgery 270 MG/DL (74-106); Hematocrit Heart Surgery 44.6 PERCENT (42-52); Hemoglobin Heart Surgery 14.6 G/DL (14.0-18.0); Potassium Heart/CVR 3.5 MMOL/L (3.5-5.1)
[2020-05-06] MEDS: INSULIN REGULAR DRIP 100 ML IV SCH ×2 (12:58→22:03)
[2020-05-06] MEDS: POTASSIUM CHLORIDE RIDER 20 MEQ in PREMIX 1 EACH IV PRN ×3 (13:18→20:16)
[2020-05-06 13:52] LABS: ABG Base Excess -4.1 MMOL/L (-2.5-2.5); ABG HCO3 21.1 MMOL/L (20-26); ABG Oxygen Saturation 98.5 % (95-100); ABG PCO2 36.8 MM HG (35-48); ABG TCO2 18.1 MMOL/L (23-27); Glucose Heart Surgery 273 MG/DL (74-106); Hematocrit Heart Surgery 42.5 PERCENT (42-52); Hemoglobin Heart Surgery 13.9 G/DL (14.0-18.0); Potassium Heart/CVR 3.6 MMOL/L (3.5-5.1)
[2020-05-06] MEDS: MIDAZOLAM 2 MG/2 ML VIAL IV PRN ×2 (14:25→17:09)
[2020-05-06 16:10] LABS: ABG Base Excess -7.5 MMOL/L (-2.5-2.5); ABG HCO3 17.7 MMOL/L (20-26); ABG Oxygen Saturation 96.6 % (95-100); ABG PCO2 35.3 MM HG (35-48); ABG PH 7.319 (7.35-7.45); ABG TCO2 18.8 MMOL/L (23-27); Glucose Heart Surgery 260 MG/DL (74-106); Hemoglobin Heart Surgery 13.4 G/DL (14.0-18.0); Potassium Heart/CVR 3.6 MMOL/L (3.5-5.1)
[2020-05-06] MEDS ORDERED: SODIUM BICARBONATE 50 MEQ/50 ML VIAL IV STA ×2 (16:18→17:36)
[2020-05-06 17:17] LABS: ABG Base Excess -7.2 MMOL/L (-2.5-2.5); ABG HCO3 18.7 MMOL/L (20-26); ABG PCO2 39.3 MM HG (35-48); ABG PH 7.293 (7.35-7.45); ABG TCO2 16.8 MMOL/L (23-27); Glucose Heart Surgery 265 MG/DL (74-106); Hematocrit Heart Surgery 40.4 PERCENT (42-52); Hemoglobin Heart Surgery 13.1 G/DL (14.0-18.0); Potassium Heart/CVR 3.6 MMOL/L (3.5-5.1)
[2020-05-06] MEDS: ONDANSETRON 4 MG/2 ML VIAL IV PRN (17:54)
[2020-05-06] MEDS: CEFUROXIME INJ 1,500 MG in SYRINGE 1 EACH IV SCH (17:56)
[2020-05-06 18:33] LABS: ABG Base Excess -1.8 MMOL/L (-2.5-2.5); ABG HCO3 22.2 MMOL/L (20-26); ABG PCO2 35.2 MM HG (35-48); ABG PH 7.417 (7.35-7.45); ABG PO2 90.4 MM HG (80-95); ABG TCO2 23.2 MMOL/L (23-27); Glucose Heart Surgery 240 MG/DL (74-106); Hemoglobin Heart Surgery 13.2 G/DL (14.0-18.0)
[2020-05-06 20:06] LABS: ABG Base Excess -1.8 MMOL/L (-2.5-2.5); ABG HCO3 22.7 MMOL/L (20-26); ABG Oxygen Saturation 97.2 % (95-100); ABG PCO2 37.7 MM HG (35-48); ABG PH 7.397 (7.35-7.45); ABG PO2 91.9 MM HG (80-95); ABG TCO2 23.8 MMOL/L (23-27); Glucose Heart Surgery 219 MG/DL (74-106); Hemoglobin Heart Surgery 13.4 G/DL (14.0-18.0); Potassium Heart/CVR 3.8 MMOL/L (3.5-5.1)
[2020-05-06 20:37] LABS: CKMB % 5.4 %
[2020-05-06 20:40] LABS: Troponin I 9.05 NG/ML (0.00-0.045)
[2020-05-06] MEDS: POTASSIUM CHLORIDE RIDER 10 MEQ in PREMIX 1 EACH IV PRN (20:43)
[2020-05-06 21:12] LABS: ABG Base Excess -0.8 MMOL/L (-2.5-2.5); ABG HCO3 23.8 MMOL/L (20-26); ABG Oxygen Saturation 97.6 % (95-100); ABG PCO2 39.3 MM HG (35-48); ABG PO2 98.4 MM HG (80-95); Glucose Heart Surgery 200 MG/DL (74-106); Hemoglobin Heart Surgery 13.3 G/DL (14.0-18.0); Potassium Heart/CVR 4.3 MMOL/L (3.5-5.1)
[2020-05-06] MEDS: MORPHINE 4 MG/1 ML VIAL IV PRN ×2 (21:14→23:43)
[2020-05-06 22:24] LABS: ABG Base Excess 0.7 MMOL/L (-2.5-2.5); ABG Oxygen Saturation 98.5 % (95-100); ABG PCO2 39.5 MM HG (35-48); ABG PH 7.412 (7.35-7.45); Glucose Heart Surgery 193 MG/DL (74-106); Hematocrit Heart Surgery 39.6 PERCENT (42-52); Hemoglobin Heart Surgery 12.9 G/DL (14.0-18.0); Potassium Heart/CVR 4.3 MMOL/L (3.5-5.1)
[2020-05-06 23:18] LABS: ABG HCO3 25.2 MMOL/L (20-26); ABG Oxygen Saturation 97.4 % (95-100); ABG PH 7.406 (7.35-7.45); ABG PO2 87.2 MM HG (80-95); ABG TCO2 22.5 MMOL/L (23-27); Glucose Heart Surgery 175 MG/DL (74-106); Hematocrit Heart Surgery 39.3 PERCENT (42-52); Hemoglobin Heart Surgery 12.8 G/DL (14.0-18.0)
[2020-05-07] MEDS: ONDANSETRON 4 MG/2 ML VIAL IV PRN ×4 (00:03→18:05)
[2020-05-07 00:23] LABS: ABG Base Excess 0.2 MMOL/L (-2.5-2.5); ABG HCO3 24.5 MMOL/L (20-26); ABG Oxygen Saturation 95.2 % (95-100); ABG PCO2 40.7 MM HG (35-48); ABG PH 7.396 (7.35-7.45); ABG PO2 71.6 MM HG (80-95); ABG TCO2 21.9 MMOL/L (23-27); Glucose Heart Surgery 162 MG/DL (74-106); Hematocrit Heart Surgery 39.9 PERCENT (42-52); Potassium Heart/CVR 3.7 MMOL/L (3.5-5.1)
[2020-05-07 03:46] LABS: ABG Base Excess 2.8 MMOL/L (-2.5-2.5); ABG HCO3 26.8 MMOL/L (20-26); ABG Oxygen Saturation 93.8 % (95-100); ABG PCO2 41.3 MM HG (35-48); ABG PH 7.429 (7.35-7.45); ABG PO2 65.5 MM HG (80-95); ABG TCO2 23.9 MMOL/L (23-27); Glucose Heart Surgery 151 MG/DL (74-106); Hematocrit Heart Surgery 39.1 PERCENT (42-52); Hemoglobin Heart Surgery 12.7 G/DL (14.0-18.0); Potassium Heart/CVR 3.8 MMOL/L (3.5-5.1)
[2020-05-07 03:52] LABS: Basophils % 0.2 % (0.0-0.8); Hematocrit 36.3 VOL% (42.0-52.0); Hemoglobin 12.8 GM/DL (14.0-18.0); Immature Granulocytes % 0.5 %; Lymphocytes # 0.4 10*3/uL (1.4-4.0); Lymphocytes % 2.3 % (21.2-54.2); Mean Corpuscular HGB Conc 35.3 GM/DL (32-36); Mean Corpuscular Volume 82.7 FL (87-102); Mean Platelet Volume 9.8 FL (9.6-12.0); Monocytes % 3.6 % (1.7-12.7); Neutrophils % 93.4 % (38.7-73.9); Platelet Count 233 T/CUMM (130-400); Red Blood Count 4.39 MC/CUMM (3.8-5.5); Red Cell Distribution Width 12.7 % (9.3-17.3); White Blood Count 19.1 T/CUMM (4-12)
[2020-05-07 04:06] LABS: CKMB % 4.4 %
[2020-05-07] MEDS: NITROPRUSSIDE 100 MG in DEXTROSE 5% 250 ML IV PRN (04:09)
[2020-05-07 04:11] LABS: Albumin 3.3 G/DL (3.4-5.0); Bilirubin,Direct 0.22 MG/DL (0.0-0.20); Bilirubin,Total 0.8 MG/DL (0.2-1.0); Calcium 8.3 MG/DL (8.5-10.1); Osmolality,Calculated 289.7 MOS/KG (273-304); Total Protein 6.4 G/DL (6.4-8.3)
[2020-05-07 04:39] LABS: Lymphocytes 2 % (20-55); Segmented Neutrophils 96 % (50-85); Total Cells Counted 100
[2020-05-07] MEDS: POTASSIUM CHLORIDE RIDER 20 MEQ in PREMIX 1 EACH IV PRN (04:39)
[2020-05-07 04:40] LABS: Hypochromasia Slight; Microcytosis Slight; Platelet Estimate Adequate
[2020-05-07] MEDS ORDERED: FUROSEMIDE 40 MG/4 ML VIAL IV ONE (04:46)
[2020-05-07] MEDS: POTASSIUM CHLORIDE RIDER 10 MEQ in PREMIX 1 EACH IV PRN (05:11)
[2020-05-07] MEDS: MORPHINE 4 MG/1 ML VIAL IV PRN (05:26)
[2020-05-07] MEDS: INSULIN REGULAR DRIP 100 ML IV SCH (06:02)
[2020-05-07] MEDS: CEFUROXIME INJ 1,500 MG in SYRINGE 1 EACH IV SCH ×2 (06:32→19:08)
[2020-05-07] MEDS ORDERED: DEXTROSE 50% 25 GM/50 ML VIAL IV PRN ×2 (07:49→09:08)
[2020-05-07] MEDS ORDERED: GLUCAGON 1 MG VIAL IM PRN ×2 (07:49→09:08)
[2020-05-07] MEDS: allopurinoL 100 MG TABLET PO SCH (08:49)
[2020-05-07] MEDS: ASPIRIN EC 325 MG TABLET PO SCH (08:49)
[2020-05-07] MEDS: METOPROLOL TARTRATE 25 MG TABLET PO SCH (08:49)
[2020-05-07] MEDS: CHLORHEXIDINE 0.12% ORAL RINSE 60 ML BOTTLE SWISH/SPIT SCH ×2 (08:49→09:20)
[2020-05-07] MEDS: metFORMIN 500 MG TABLET PO SCH ×2 (08:52→17:50)
[2020-05-07] MEDS ORDERED: INSULIN GLARGINE 100 UNIT/ML SUBCUT SCH (09:00)
[2020-05-07] MEDS ORDERED: MAGNESIUM SULF RIDER 2 GM in PREMIX 1 EACH IV PRN (09:08)
[2020-05-07] MEDS ORDERED: MAGNESIUM HYDROXIDE SUSP 30 ML UDCUP PO PRN (09:08)
[2020-05-07] MEDS ORDERED: MAGNESIUM SULF RIDER 4 GM in PREMIX 1 EACH IV PRN (09:08)
[2020-05-07] MEDS ORDERED: ACETAMINOPHEN 325 MG TABLET PO PRN (09:08)
[2020-05-07] MEDS ORDERED: ZALEPLON 5 MG CAPSULE PO PRN (09:08)
[2020-05-07] MEDS ORDERED: SODIUM CHLOR 0.45% KCL 20 MEQ 20 MEQ/1,000 ML BAG IV SCH (09:08)
[2020-05-07] MEDS ORDERED: ALUMINUM/MAGNES/SIMETH MAX STR 30 ML UDCUP PO PRN (09:08)
[2020-05-07] MEDS: DOCUSATE SODIUM 100 MG CAPSULE PO SCH (09:31)
[2020-05-07] MEDS: PANTOPRAZOLE 40 MG TABLET PO SCH (09:31)
[2020-05-07] MEDS: FERROUS SULFATE 325 MG TABLET PO SCH (09:31)
[2020-05-07] MEDS: KETOROLAC 30 MG/1 ML VIAL IV PRN ×2 (10:15→18:05)
[2020-05-07] MEDS: oxyCODONE/ACETAMINOPHEN 5-325 MG TABLET PO PRN ×2 (10:30→14:06)
[2020-05-07 11:20] LABS: CKMB % 3.7 %
[2020-05-07 11:27] LABS: Troponin I 15.6 NG/ML (0.00-0.045)
[2020-05-07] MEDS ORDERED: INSULIN REGULAR 100 UNIT/ML SUBCUT SCH (11:30)
[2020-05-07] MEDS: INSULIN REGULAR 100 UNIT/ML SUBCUT SCH ×2 (12:07→17:50)
[2020-05-07 23:46] LABS: CKMB % 1.5 %; Troponin I 12.8 NG/ML (0.00-0.045)
[2020-05-08] MEDS: METOPROLOL TARTRATE 25 MG TABLET PO SCH ×2 (00:54→08:09)
[2020-05-08] MEDS: ATORVASTATIN 40 MG TABLET PO SCH (00:55)
[2020-05-08] MEDS: CHLORHEXIDINE 0.12% ORAL RINSE 60 ML BOTTLE SWISH/SPIT SCH ×2 (00:56→08:11)
[2020-05-08] MEDS: INSULIN REGULAR 100 UNIT/ML SUBCUT SCH ×5 (01:54→22:21)
[2020-05-08] MEDS ORDERED: FUROSEMIDE 40 MG/4 ML VIAL IV ONE (06:00)
[2020-05-08] MEDS: ONDANSETRON 4 MG/2 ML VIAL IV PRN (06:13)
[2020-05-08] MEDS: KETOROLAC 30 MG/1 ML VIAL IV PRN (06:16)
[2020-05-08 06:39] LABS: Basophils % 0.1 % (0.0-0.8); Hematocrit 38.9 VOL% (42.0-52.0); Hemoglobin 12.9 GM/DL (14.0-18.0); Immature Granulocytes % 0.8 %; Immature Granulocytes Absolute 0.17 #; Lymphocytes # 1.2 10*3/uL (1.4-4.0); Mean Corpuscular HGB Conc 33.2 GM/DL (32-36); Mean Corpuscular Volume 86.8 FL (87-102); Mean Platelet Volume 10.5 FL (9.6-12.0); Monocytes % 6.4 % (1.7-12.7); Neutrophils % 86.7 % (38.7-73.9); Platelet Count 210 T/CUMM (130-400); Red Blood Count 4.48 MC/CUMM (3.8-5.5); Red Cell Distribution Width 13.1 % (9.3-17.3); White Blood Count 20.6 T/CUMM (4-12)
[2020-05-08 06:42] LABS: Bilirubin,Direct 0.14 MG/DL (0.0-0.20); Bilirubin,Total 0.6 MG/DL (0.2-1.0); Calcium 8.3 MG/DL (8.5-10.1); Osmolality,Calculated 287.4 MOS/KG (273-304); Total Protein 6.6 G/DL (6.4-8.3)
[2020-05-08 07:21] LABS: Albumin 3.1 G/DL (3.4-5.0); Bilirubin,Direct 0.16 MG/DL (0.0-0.20); Bilirubin,Indirect 0.3 MG/DL (0.0-1.0); Bilirubin,Total 0.5 MG/DL (0.2-1.0); CKMB % 1.1 %; Total Protein 6.5 G/DL (6.4-8.3); Troponin I 10.8 NG/ML (0.00-0.045)
[2020-05-08 07:23] LABS: Calcium 8.3 MG/DL (8.5-10.1); Osmolality,Calculated 283.7 MOS/KG (273-304)
[2020-05-08] MEDS: PANTOPRAZOLE 40 MG TABLET PO SCH (08:11)
[2020-05-08] MEDS: metFORMIN 500 MG TABLET PO SCH ×2 (08:11→17:10)
[2020-05-08] MEDS: POLYETHYLENE GLYCOL POWDER 17 GM PACK PO SCH (08:11)
[2020-05-08] MEDS: DOCUSATE SODIUM 100 MG CAPSULE PO SCH (08:11)
[2020-05-08] MEDS: allopurinoL 100 MG TABLET PO SCH (08:11)
[2020-05-08] MEDS: FERROUS SULFATE 325 MG TABLET PO SCH (08:11)
[2020-05-08] MEDS: ASPIRIN EC 325 MG TABLET PO SCH (08:11)
[2020-05-08 09:52] LABS: Lymphocytes 4 % (20-55); Platelet Estimate Normal; Segmented Neutrophils 91 % (50-85); Total Cells Counted 100
[2020-05-08] MEDS: INSULIN GLARGINE 100 UNIT/ML SUBCUT SCH (10:44)
[2020-05-08] MEDS: oxyCODONE/ACETAMINOPHEN 5-325 MG TABLET PO PRN ×4 (14:04→20:38)
[2020-05-09] MEDS: CHLORHEXIDINE 0.12% ORAL RINSE 60 ML BOTTLE SWISH/SPIT SCH ×3 (01:05→23:17)
[2020-05-09] MEDS: METOPROLOL TARTRATE 25 MG TABLET PO SCH ×3 (01:05→23:11)
[2020-05-09] MEDS: ATORVASTATIN 40 MG TABLET PO SCH ×2 (01:05→23:11)
[2020-05-09 07:17] LABS: Basophils % 0.3 % (0.0-0.8); Eosinophils # 0.2 10*3/uL (0.0-0.87); Eosinophils % 1.5 % (0.00-10.9); Hematocrit 34.9 VOL% (42.0-52.0); Hemoglobin 11.9 GM/DL (14.0-18.0); Immature Granulocytes % 0.8 %; Lymphocytes # 1.4 10*3/uL (1.4-4.0); Lymphocytes % 11.3 % (21.2-54.2); Mean Corpuscular HGB Conc 34.1 GM/DL (32-36); Mean Platelet Volume 9.9 FL (9.6-12.0); Monocytes % 7.2 % (1.7-12.7); Neutrophils % 78.9 % (38.7-73.9); Platelet Count 233 T/CUMM (130-400); Red Blood Count 4.06 MC/CUMM (3.8-5.5); Red Cell Distribution Width 12.8 % (9.3-17.3)
[2020-05-09 07:34] LABS: Osmolality,Calculated 284.5 MOS/KG (273-304)
[2020-05-09 07:38] LABS: Albumin 2.9 G/DL (3.4-5.0); Bilirubin,Direct 0.22 MG/DL (0.0-0.20); Bilirubin,Total 0.8 MG/DL (0.2-1.0); Calcium 8.2 MG/DL (8.5-10.1); Osmolality,Calculated 285.4 MOS/KG (273-304); Total Protein 6.3 G/DL (6.4-8.3)
[2020-05-09 07:59] LABS: Alanine Aminotransferase 16 U/L (16-61); Albumin 2.9 G/DL (3.4-5.0); Alkaline Phosphatase 80 U/L (45-117); Aspartate Amino Transferase 30 U/L (0-37); Bilirubin,Indirect 0.6 MG/DL (0.0-1.0); Total Protein 5.8 G/DL (6.4-8.3)
[2020-05-09] MEDS: INSULIN REGULAR 100 UNIT/ML SUBCUT SCH ×3 (09:42→16:12)
[2020-05-09] MEDS: oxyCODONE/ACETAMINOPHEN 5-325 MG TABLET PO PRN ×2 (09:43→17:09)
[2020-05-09] MEDS: INSULIN GLARGINE 100 UNIT/ML SUBCUT SCH (09:43)
[2020-05-09] MEDS: ASPIRIN EC 325 MG TABLET PO SCH (09:43)
[2020-05-09] MEDS: allopurinoL 100 MG TABLET PO SCH (09:43)
[2020-05-09] MEDS: metFORMIN 500 MG TABLET PO SCH ×2 (09:43→17:07)
[2020-05-09] MEDS: PANTOPRAZOLE 40 MG TABLET PO SCH (09:44)
[2020-05-09] MEDS: FERROUS SULFATE 325 MG TABLET PO SCH (09:44)
[2020-05-09] MEDS: DOCUSATE SODIUM 100 MG CAPSULE PO SCH (09:44)
[2020-05-09] MEDS: POLYETHYLENE GLYCOL POWDER 17 GM PACK PO SCH (09:45)
[2020-05-09] MEDS ORDERED: LACTULOSE 20 GM/30 ML UDCUP PO ONE (21:50)
[2020-05-10] MEDS: oxyCODONE/ACETAMINOPHEN 5-325 MG TABLET PO PRN (06:33)
[2020-05-10 06:55] LABS: Basophils % 0.3 % (0.0-0.8); Eosinophils # 0.6 10*3/uL (0.0-0.87); Eosinophils % 5.1 % (0.00-10.9); Hematocrit 35.7 VOL% (42.0-52.0); Hemoglobin 12.2 GM/DL (14.0-18.0); Immature Granulocytes % 0.9 %; Lymphocytes # 1.4 10*3/uL (1.4-4.0); Lymphocytes % 12.5 % (21.2-54.2); Mean Corpuscular HGB Conc 34.2 GM/DL (32-36); Mean Corpuscular Volume 85.6 FL (87-102); Mean Platelet Volume 9.8 FL (9.6-12.0); Monocytes % 6.5 % (1.7-12.7); Neutrophils % 74.7 % (38.7-73.9); Platelet Count 255 T/CUMM (130-400); Red Blood Count 4.17 MC/CUMM (3.8-5.5); Red Cell Distribution Width 12.6 % (9.3-17.3); White Blood Count 11.1 T/CUMM (4-12)
[2020-05-10 07:03] LABS: Calcium 8.4 MG/DL (8.5-10.1); Osmolality,Calculated 284.1 MOS/KG (273-304)
[2020-05-10] MEDS: POTASSIUM CHLORIDE 20 MEQ TABLET PO PRN ×2 (07:35→09:43)
[2020-05-10] MEDS ORDERED: LACTULOSE 20 GM/30 ML UDCUP PO ONE ×2 (08:45→08:46)
[2020-05-10] MEDS: INSULIN REGULAR 100 UNIT/ML SUBCUT SCH ×5 (08:46→21:48)
[2020-05-10] MEDS: POLYETHYLENE GLYCOL POWDER 17 GM PACK PO SCH (09:42)
[2020-05-10] MEDS: METOPROLOL TARTRATE 25 MG TABLET PO SCH ×2 (09:42→21:48)
[2020-05-10] MEDS: DOCUSATE SODIUM 100 MG CAPSULE PO SCH (09:42)
[2020-05-10] MEDS: INSULIN GLARGINE 100 UNIT/ML SUBCUT SCH (09:42)
[2020-05-10] MEDS: ASPIRIN EC 325 MG TABLET PO SCH (09:42)
[2020-05-10] MEDS: metFORMIN 500 MG TABLET PO SCH ×2 (09:43→16:17)
[2020-05-10] MEDS: FERROUS SULFATE 325 MG TABLET PO SCH (09:43)
[2020-05-10] MEDS: LOSARTAN 25 MG TABLET PO SCH (09:43)
[2020-05-10] MEDS: PANTOPRAZOLE 40 MG TABLET PO SCH (09:43)
[2020-05-10] MEDS: CHLORHEXIDINE 0.12% ORAL RINSE 60 ML BOTTLE SWISH/SPIT SCH ×2 (09:45→21:48)
[2020-05-10] MEDS: allopurinoL 100 MG TABLET PO SCH (09:48)
[2020-05-10] MEDS: LACTULOSE 20 GM/30 ML UDCUP PO SCH (21:47)
[2020-05-10] MEDS: ATORVASTATIN 40 MG TABLET PO SCH (21:48)
[2020-05-11 05:45] LABS: Basophils # 0.1 10*3/uL (0.0-0.2); Basophils % 0.4 % (0.0-0.8); Eosinophils # 0.7 10*3/uL (0.0-0.87); Eosinophils % 5.7 % (0.00-10.9); Hematocrit 35.7 VOL% (42.0-52.0); Hemoglobin 12.2 GM/DL (14.0-18.0); Immature Granulocytes % 1.2 %; Immature Granulocytes Absolute 0.15 #; Lymphocytes # 1.7 10*3/uL (1.4-4.0); Lymphocytes % 13.3 % (21.2-54.2); Mean Corpuscular HGB Conc 34.2 GM/DL (32-36); Mean Corpuscular Volume 84.8 FL (87-102); Mean Platelet Volume 9.6 FL (9.6-12.0); Monocytes % 6.4 % (1.7-12.7); NRBC # 0.02 10*3/uL; Platelet Count 308 T/CUMM (130-400); Red Blood Count 4.21 MC/CUMM (3.8-5.5); Red Cell Distribution Width 12.7 % (9.3-17.3); White Blood Count 12.8 T/CUMM (4-12)
[2020-05-11 06:07] LABS: Alanine Aminotransferase 15 U/L (16-61); Albumin 2.7 G/DL (3.4-5.0); Alkaline Phosphatase 94 U/L (45-117); Aspartate Amino Transferase 16 U/L (0-37); Bilirubin,Indirect 1.2 MG/DL (0.0-1.0); Blood Urea Nitrogen 16 MG/DL (7-18); Calcium 8.6 MG/DL (8.5-10.1); Estimated Glom Filtration Rate 119 ML/MIN; Glucose 84 MG/DL (74-106); Osmolality,Calculated 280.3 MOS/KG (273-304); Total Protein 6.5 G/DL (6.4-8.3)
[2020-05-11] MEDS: POLYETHYLENE GLYCOL POWDER 17 GM PACK PO SCH (09:25)
[2020-05-11] MEDS: LACTULOSE 20 GM/30 ML UDCUP PO SCH (09:25)
[2020-05-11] MEDS: INSULIN GLARGINE 100 UNIT/ML SUBCUT SCH (09:25)
[2020-05-11] MEDS: INSULIN REGULAR 100 UNIT/ML SUBCUT SCH ×2 (09:25→13:09)
[2020-05-11] MEDS: allopurinoL 100 MG TABLET PO SCH (09:26)
[2020-05-11] MEDS: DOCUSATE SODIUM 100 MG CAPSULE PO SCH (09:26)
[2020-05-11] MEDS: metFORMIN 500 MG TABLET PO SCH (09:26)
[2020-05-11] MEDS: PANTOPRAZOLE 40 MG TABLET PO SCH (09:26)
[2020-05-11] MEDS: METOPROLOL TARTRATE 25 MG TABLET PO SCH (09:26)
[2020-05-11] MEDS: FERROUS SULFATE 325 MG TABLET PO SCH (09:26)
[2020-05-11] MEDS: CHLORHEXIDINE 0.12% ORAL RINSE 60 ML BOTTLE SWISH/SPIT SCH (09:27)
[2020-05-11] MEDS: ASPIRIN EC 325 MG TABLET PO SCH (09:27)
[2020-05-11] MEDS: LOSARTAN 25 MG TABLET PO SCH (09:27)
[2020-05-11 12:13] VITALS: BP 131/70
== END 2020-05-11 13:12 | disposition home health service (06) | DRG 234 ==
LOC: N.CL 06:00 → N.TELEN 13:52 → N.CVR 05-06 09:19 → N.ICU 05-07 07:48 → N.TELES 05-07 11:52
PROVIDERS: ADMIT Internal Medicine Interventional Cardiology
PROC: CLCCHCL (ICD-10-PCS; 2020-05-04 07:45)

== ENCOUNTER 2022-03-14 12:55 | Observation (INO) ==
[2022-03-14] MEDS ORDERED: ASPIRIN 325 MG TABLET ONE (16:44)
[2022-03-14] MEDS ORDERED: ASPIRIN 325 MG TABLET PO STA (16:45)
[2022-03-14 16:52] LABS: Basophils # 0.1 10*3/uL (0.0-0.2); Basophils % 0.7 % (0.0-0.8); Eosinophils # 0.4 10*3/uL (0.0-0.87); Hemoglobin 15.3 GM/DL (14.0-18.0); Immature Granulocytes % 0.6 %; Immature Granulocytes Absolute 0.04 #; Lymphocytes # 1.4 10*3/uL (1.4-4.0); Lymphocytes % 20.7 % (21.2-54.2); Mean Corpuscular HGB Conc 33.3 GM/DL (32-36); Mean Corpuscular Volume 84.2 FL (87-102); Mean Platelet Volume 9.8 FL (9.6-12.0); Monocytes # 0.5 10*3/uL (0.11-0.8); Monocytes % 7.1 % (1.7-12.7); Neutrophils % 64.9 % (38.7-73.9); Platelet Count 263 T/CUMM (130-400); Red Blood Count 5.46 MC/CUMM (3.8-5.5); Red Cell Distribution Width 13.2 % (9.3-17.3); White Blood Count 6.9 T/CUMM (4-12)
[2022-03-14 17:03] LABS: Albumin 3.1 G/DL (3.4-5.0); Bilirubin,Total 0.6 MG/DL (0.20-1.00); Calcium 9.4 MG/DL (8.5-10.1); Osmolality,Calculated 286.4 MOS/KG (273-304); Total Protein 7.3 G/DL (6.4-8.2)
[2022-03-14] MEDS ORDERED: MAGNESIUM SULF RIDER 2 GM/50 ML PREMIX IV PRN (17:29)
[2022-03-14] MEDS ORDERED: ONDANSETRON 4 MG/2 ML VIAL IV PRN (17:29)
[2022-03-14] MEDS ORDERED: MAGNESIUM SULF RIDER 4 GM/100 ML PREMIX IV PRN (17:29)
[2022-03-14] MEDS ORDERED: ACETAMINOPHEN 500 MG TABLET PO PRN (19:23)
[2022-03-14] MEDS ORDERED: NITROGLYCERIN SL 0.4 MG TABLET SL PRN (19:23)
[2022-03-14] MEDS ORDERED: carvediloL 3.125 MG TABLET PO SCH (21:00)
[2022-03-15] MEDS ORDERED: diphenhydrAMINE CAP 50 MG CAPSULE PO ONE ×2 (07:19→14:30)
[2022-03-15] MEDS ORDERED: DIAZEPAM 5 MG TABLET PO ONE ×2 (07:19→14:30)
[2022-03-15] MEDS ORDERED: hydrALAZINE 20 MG/1 ML VIAL IV PRN (07:34)
[2022-03-15] MEDS ORDERED: metFORMIN 500 MG TABLET PO SCH (08:00)
[2022-03-15] MEDS ORDERED: ENOXAPARIN 120 MG/0.8 ML SYRINGE SUBCUT ONE (08:00)
[2022-03-15 08:17] LABS: Risk Ratio 4.83; VLDL Cholesterol 26.2 MG/DL
[2022-03-15] MEDS ORDERED: LOSARTAN 25 MG TABLET PO SCH (09:00)
[2022-03-15] MEDS: allopurinoL 100 MG TABLET PO SCH (09:42)
[2022-03-15] MEDS: LOSARTAN 50 MG TABLET PO SCH (09:42)
[2022-03-15] MEDS: ASPIRIN EC 81 MG TABLET PO SCH (09:42)
[2022-03-15] MEDS: MELOXICAM 7.5 MG TABLET PO SCH (09:44)
[2022-03-15] MEDS ORDERED: SODIUM CHLORIDE 0.45% 1,000 ML IV SCH (10:00)
[2022-03-15] MEDS: INSULIN REGULAR 100 UNIT/ML SUBCUT SCH ×3 (12:59→22:13)
[2022-03-15] MEDS ORDERED: HEPARIN/NACL 0.9% 2 UNITS/ML 2,000 UNIT/1,000 ML BAG IV ONE (14:13)
[2022-03-15] MEDS ORDERED: LIDOCAINE 1%/EPI INJ 20 ML VIAL ONE (14:15)
[2022-03-15] MEDS ORDERED: MIDAZOLAM 2 MG/2 ML VIAL ONE ×2 (14:39→15:42)
[2022-03-15] MEDS ORDERED: fentaNYL 100 MCG/2 ML VIAL ONE (14:39)
[2022-03-15] MEDS ORDERED: ENOXAPARIN 60 MG/0.6 ML SYRINGE ONE (15:03)
[2022-03-15] MEDS ORDERED: TIROFIBAN 5,000 MCG/100 ML PREMIX IV ONE (15:12)
[2022-03-15] MEDS ORDERED: TICAGRELOR 90 MG TABLET ONE (15:42)
[2022-03-15] MEDS ORDERED: HYDROmorphone 1 MG/1 ML SYRINGE ONE (16:01)
[2022-03-15] MEDS ORDERED: DEXTROSE 10% 250 ML BAG IV PRN (19:57)
[2022-03-15] MEDS ORDERED: GLUCAGON 1 MG VIAL IM PRN (19:57)
[2022-03-15] MEDS ORDERED: SIMVASTATIN 20 MG TABLET PO SCH (21:00)
[2022-03-15] MEDS ORDERED: ROSUVASTATIN 20 MG TABLET PO SCH (21:00)
[2022-03-15] MEDS: TICAGRELOR 90 MG TABLET PO SCH (22:13)
[2022-03-16 04:51] LABS: Basophils # 0.1 10*3/uL (0.0-0.2); Basophils % 0.6 % (0.0-0.8); Eosinophils # 0.5 10*3/uL (0.0-0.87); Eosinophils % 5.9 % (0.00-10.9); Hematocrit 43.6 VOL% (42.0-52.0); Hemoglobin 14.3 GM/DL (14.0-18.0); Immature Granulocytes % 0.7 %; Immature Granulocytes Absolute 0.06 #; Lymphocytes # 1.3 10*3/uL (1.4-4.0); Lymphocytes % 15.3 % (21.2-54.2); Mean Corpuscular HGB Conc 32.8 GM/DL (32-36); Mean Corpuscular Volume 84.8 FL (87-102); Mean Platelet Volume 9.7 FL (9.6-12.0); Monocytes # 0.8 10*3/uL (0.11-0.8); Neutrophils % 68.5 % (38.7-73.9); Platelet Count 235 T/CUMM (130-400); Red Blood Count 5.14 MC/CUMM (3.8-5.5); White Blood Count 8.3 T/CUMM (4-12)
[2022-03-16 05:07] LABS: Calcium 8.3 MG/DL (8.5-10.1); Osmolality,Calculated 283.3 MOS/KG (273-304); Potassium 3.6 MMOL/L (3.5-5.1)
[2022-03-16] MEDS ORDERED: PANTOPRAZOLE 40 MG TABLET PO SCH (09:00)
[2022-03-16] MEDS: INSULIN REGULAR 100 UNIT/ML SUBCUT SCH (09:04)
[2022-03-16] MEDS: MELOXICAM 7.5 MG TABLET PO SCH (09:06)
[2022-03-16] MEDS: allopurinoL 100 MG TABLET PO SCH (09:06)
[2022-03-16] MEDS: TICAGRELOR 90 MG TABLET PO SCH (09:06)
[2022-03-16] MEDS: ASPIRIN EC 81 MG TABLET PO SCH (09:06)
[2022-03-16] MEDS: LOSARTAN 50 MG TABLET PO SCH (09:06)
[2022-03-16 11:53] VITALS: BP 139/64
== END 2022-03-16 12:06 | disposition home or self-care (01) ==
LOC: N.ED 12:55 → N.EDINP 12:55 → N.TELEN 03-15 01:28
PROVIDERS: ADMIT Internal Medicine Interventional Cardiology; ATTEND Internal Medicine Interventional Cardiology